=== PATIENT | female | born 1950 | race Caucasian/White ===

== ENCOUNTER 2018-04-15 12:19 | Inpatient (IN) | payer MEDICARE, OTHER ==
[2018-04-15] VITALS (11 sets, daily range): BP systolic 125–156; BP diastolic 62–79
[~2018-04-15] VITALS: Ht 157.5 cm; Wt 51.7 kg
[2018-04-15] MEDS ORDERED: morphine 4 MG/ML inj SYRINge IV ONE (15:10)
[2018-04-15] MEDS ORDERED: famotidine/PF 10 mg/ml inj IV ONE (15:10)
[2018-04-15] MEDS ORDERED: normal saline 1000ML IV soln IVB ONE (15:10)
[2018-04-15] MEDS ORDERED: ondansetron/PF 4mg/2ml inj IV ONE (15:10)
[2018-04-15 15:24] LABS: CLARITY,URINE CLEAR (Clear); COLOR,URINE YELLOW (Yellow); GLUCOSE, URINE NEGATIVE (Neg); KETONES,URINE NEGATIVE (Neg); LEUKOCYTE ESTERASE ,URINE MODERATE (Neg); NITRITES, URINE NEGATIVE (Neg); OCCULT BLOOD,URINE SMALL (Neg); PH,URINE 6.5 (4.8-8.0); PROTEIN,URINE NEGATIVE (Neg); UROBILINOGEN,URINE 0.2 E.U/dL (0.2-1.0)
[2018-04-15 15:25] LABS: UA COLLECTION TYPE NON-SPECIFIED
[2018-04-15 15:30] LABS: SQUAMOUS EPITHELIAL CELL,UR MANY /LPF (FEW)
[2018-04-15 15:32] LABS: TRANSITIONAL EPI CELLS,URINE MODERATE /HPF
[2018-04-15 15:34] LABS: BACTERIA,URINE 2+ /HPF (Neg)
[2018-04-15 15:37] LABS: PROTHROMBIN TIME 10.3 SECONDS (9.0-12.0)
[2018-04-15 15:39] LABS: BASOPHILS # (AUTO) 0.1 X10'3 (0-0.2); BASOPHILS % (AUTO) 0.8 % (0-1); EOSINOPHILS % (AUTO) 0.3 % (0-6); HEMATOCRIT 41.1 % (35.0-45.0); HEMOGLOBIN 14.3 g/dl (12.0-16.0); LYMPHOCYTES # (AUTO) 1.7 X10'3 (1.1-4.8); MEAN CORPUSCULAR HEMOGLOBIN 31.3 PG (27.0-31.0); MEAN CORPUSCULAR HGB CONC 34.8 % (33.0-36.5); MEAN PLATELET VOLUME 7.9 FL (7.4-10.4); MONOCYTES # (AUTO) 0.7 X10'3 (0-0.9); MONOCYTES % (AUTO) 7.6 % (2-12); NEUTROPHILS # (AUTO) 6.8 X10'3 (1.8-7.7); NEUTROPHILS % (AUTO) 73.3 % (42-75); PLATELET COUNT 253 X10'3 (140-440); RED BLOOD COUNT 4.57 X10'6 (4.20-5.60); RED CELL DISTRIBUTION WIDTH 12.1 % (11.5-14.5); WHITE BLOOD COUNT 9.3 X10'3 (4.5-11.0)
[2018-04-15 15:40] LABS: ALANINE AMINOTRANSFERASE 20 U/L (12-78); ALBUMIN 4.2 G/DL (3.4-5.0); ALBUMIN/GLOBULIN RATIO 1.1 (1.1-1.5); ALKALINE PHOSPHATASE 110 IU/L (46-116); ANION GAP 12 (8-16); ASPARTATE AMINO TRANSFERASE 18 U/L (10-37); BILIRUBIN,TOTAL 0.5 MG/DL (0.1-1.0); BLOOD UREA NITROGEN 14 MG/DL (7-18); CALCIUM 9.3 MG/DL (8.5-10.1); CHLORIDE 97 MMOL/L (99-107); GLUCOSE 105 MG/DL (70-104); LIPASE 131 U/L (73-393); POTASSIUM 3.2 MMOL/L (3.5-5.1); SODIUM 137 MMOL/L (135-145); TOTAL CARBON DIOXIDE 27.8 MMOL/L (24-32); TOTAL PROTEIN 7.9 G/DL (6.4-8.2); eGFR 83 ML/MIN
[2018-04-15] MEDS ORDERED: iohexol 300mg/ml 100ml inj. ONE (16:10)
[2018-04-15] MEDS ORDERED: RANI150T44 PO (18:38)
[2018-04-15] MEDS ORDERED: FLUO20CA39 PO (18:38)
[2018-04-15] MEDS ORDERED: GLUC-131 PO (18:38)
[2018-04-15] MEDS ORDERED: OMEG1CAP2 (18:38)
[2018-04-15] MEDS ORDERED: CYAN-19 PO (18:38)
[2018-04-15] MEDS ORDERED: PHEN100C4 PO (18:38)
[2018-04-15] MEDS ORDERED: LECI400C2 (18:38)
[2018-04-15] MEDS ORDERED: DENO60DI (18:38)
[2018-04-15] MEDS ORDERED: VITA100D6 PO (18:38)
[2018-04-15] MEDS ORDERED: FIBER PO (18:38)
[2018-04-15] MEDS ORDERED: LORA10TA61 PO (18:38)
[2018-04-15] MEDS ORDERED: potassium Cl 40MEQ/NS 500ml 500 ML IV PRN ×2 (19:10)
[2018-04-15] MEDS ORDERED: magnesium 4gm in 100ml NS 100 ML IV PRN (19:10)
[2018-04-15] MEDS ORDERED: ondansetron/PF 4mg/2ml inj IV PRN ×2 (19:10→19:40)
[2018-04-15] MEDS ORDERED: magnesium 1gm/100ml D5W IVPB 100 ML IV PRN (19:10)
[2018-04-15] MEDS ORDERED: morphine 2 MG/ML inj. syringe IV PRN (19:10)
[2018-04-15] MEDS ORDERED: magnesium Cl slow-release 64mg tablet PO PRN (19:10)
[2018-04-15] MEDS ORDERED: magnesium hydroxide 30ml (MOM) UD suspension PO PRN (19:10)
[2018-04-15] MEDS ORDERED: potassium Cl 20 mEq SR tablet PO PRN ×2 (19:10)
[2018-04-15] MEDS ORDERED: mag hydrox/Alum hydrox/simeth 30ml oral suspension PO PRN (19:10)
[2018-04-15] MEDS: normal saline 1000ml 1,000 ML IV SCH ×2 (19:36→23:14)
[2018-04-15] MEDS ORDERED: ringers solution, lacted 1,000 ML IV SCH (19:36)
[2018-04-15] MEDS ORDERED: morphine 4 MG/ML inj SYRINge IV PRN ×2 (19:40)
[2018-04-15] MEDS ORDERED: labetalol 20mg/4ml (5mg/ml) syringe IV PRN (19:40)
[2018-04-15] MEDS ORDERED: hydrALAZINE 20mg/ml inj. IV PRN (19:40)
[2018-04-15] MEDS ORDERED: fentaNYL/PF 50MCG/1 ML 2ML syringe IV PRN ×2 (19:40)
[2018-04-15] MEDS ORDERED: BUPIVAcaine/PF 2.5mg/ml (0.25%) 10ml vial ONE (19:59)
[2018-04-15] MEDS ORDERED: famotidine 20mg tablet PO SCH (20:00)
[2018-04-15] MEDS ORDERED: rocuronium 10mg/ml inj IV ONE (20:30)
[2018-04-15] MEDS ORDERED: LIDOcaine 2% (20mg/ml) 5ml vial ONE (20:33)
[2018-04-15] MEDS ORDERED: midazolam 2 mg/2 ml injection ONE (20:33)
[2018-04-15] MEDS ORDERED: meperidine/PF 50mg/ml syringe ONE (20:33)
[2018-04-15] MEDS ORDERED: propofol inj 20 ML IV ONE (20:33)
[2018-04-15] MEDS ORDERED: sevoflurane 250ml liquid IH ONE (20:34)
[2018-04-15] MEDS ORDERED: ondansetron/PF 4mg/2ml inj ONE (20:35)
[2018-04-15] MEDS ORDERED: dexamethasone sod phosphate 4mg/ml inj. ONE (20:35)
[2018-04-15] MEDS ORDERED: ceFAZolin 1000mg inj ONE (20:51)
[2018-04-15] MEDS ORDERED: glycopyrrolate 0.2mg/ml inj ONE (21:18)
[2018-04-15] MEDS ORDERED: neostigmine methylsulfate 1 MG/ML 10ml vial ONE (21:18)
[2018-04-15] MEDS ORDERED: hydrALAZINE 20mg/ml inj. IV ONE (21:24)
[2018-04-15] MEDS: phenytoin sod ER 100mg capsule PO SCH (23:00)
[2018-04-16] VITALS (8 sets, daily range): BP systolic 111–146; BP diastolic 71–86
[2018-04-16] MEDS: morphine 2 MG/ML inj. syringe IV PRN ×2 (01:40→08:33)
[2018-04-16 05:24] LABS: BASOPHILS % (AUTO) 0 % (0-1); EOSINOPHILS % (AUTO) 0 % (0-6); HEMATOCRIT 34.5 % (35.0-45.0); HEMOGLOBIN 11.5 g/dl (12.0-16.0); LYMPHOCYTES # (AUTO) 0.6 X10'3 (1.1-4.8); LYMPHOCYTES % (AUTO) 7.8 % (21-51); MEAN CORPUSCULAR HEMOGLOBIN 30.4 PG (27.0-31.0); MEAN CORPUSCULAR HGB CONC 33.4 % (33.0-36.5); MEAN PLATELET VOLUME 8.1 FL (7.4-10.4); MONOCYTES # (AUTO) 0.5 X10'3 (0-0.9); MONOCYTES % (AUTO) 5.8 % (2-12); NEUTROPHILS # (AUTO) 6.7 X10'3 (1.8-7.7); NEUTROPHILS % (AUTO) 86.4 % (42-75); PLATELET COUNT 202 X10'3 (140-440); RED BLOOD COUNT 3.79 X10'6 (4.20-5.60); RED CELL DISTRIBUTION WIDTH 13.3 % (11.5-14.5); WHITE BLOOD COUNT 7.7 X10'3 (4.5-11.0)
[2018-04-16 06:01] LABS: ALBUMIN 3.1 G/DL (3.4-5.0); ANION GAP 9 (8-16); BLOOD UREA NITROGEN 9 MG/DL (7-18); BUN/CREATININE RATIO 13.4 (6.6-38.0); CALCIUM 7.6 MG/DL (8.5-10.1); CHLORIDE 105 MMOL/L (99-107); CREATININE 0.67 MG/DL (0.40-0.90); GLUCOSE 123 MG/DL (70-104); MAGNESIUM 1.7 MG/DL (1.5-2.4); SODIUM 139 MMOL/L (135-145); TOTAL CARBON DIOXIDE 24.7 MMOL/L (24-32); eGFR 88 ML/MIN
[2018-04-16] MEDS: normal saline 1000ml 1,000 ML IV SCH ×2 (07:55→19:12)
[2018-04-16] MEDS ORDERED: K and/or MAG REPLACEMENT MC SCH (08:00)
[2018-04-16] MEDS ORDERED: non-formulary drug (Gluc/Chon-Msm#2/C/D3/Mang/Born (Glucosamin-Chondroitin-Msm Tab) 1 EACH PO SCH (08:00)
[2018-04-16] MEDS: cyanocobalamin 500mcg tablet PO SCH (08:20)
[2018-04-16] MEDS: FLUoxetine 20mg capsule PO SCH (08:20)
[2018-04-16] MEDS: vitamin E 400 unit capsule PO SCH (08:20)
[2018-04-16] MEDS: levoFLOXACIN-Levaquin 500mg/D5 100 ML IV SCH (09:40)
[2018-04-16] MEDS: phenytoin sod ER 100mg capsule PO SCH (21:28)
[2018-04-16] MEDS: famotidine 20mg tablet PO SCH (21:28)
[2018-04-16] MEDS: lactobacillus rhamnosus 10,000 MMU CELLS/CAPSULE PO SCH (21:29)
[2018-04-16] MEDS: HYDROcodone/acetaminophen 10/325mg tab PO PRN (21:29)
[2018-04-17] VITALS: BP 136/78
[2018-04-17 05:31] LABS: BASOPHILS % (AUTO) 0.5 % (0-1); EOSINOPHILS # (AUTO) 0.1 X10'3 (0-0.9); EOSINOPHILS % (AUTO) 1.2 % (0-6); HEMATOCRIT 31.3 % (35.0-45.0); HEMOGLOBIN 10.7 g/dl (12.0-16.0); LYMPHOCYTES # (AUTO) 1.1 X10'3 (1.1-4.8); LYMPHOCYTES % (AUTO) 16.7 % (21-51); MEAN CORPUSCULAR HEMOGLOBIN 31.1 PG (27.0-31.0); MEAN CORPUSCULAR HGB CONC 34.1 % (33.0-36.5); MEAN CORPUSCULAR VOLUME 91.2 FL (78-98); MEAN PLATELET VOLUME 7.9 FL (7.4-10.4); MONOCYTES # (AUTO) 0.6 X10'3 (0-0.9); MONOCYTES % (AUTO) 8.5 % (2-12); NEUTROPHILS # (AUTO) 4.8 X10'3 (1.8-7.7); NEUTROPHILS % (AUTO) 73.1 % (42-75); PLATELET COUNT 167 X10'3 (140-440); RED BLOOD COUNT 3.43 X10'6 (4.20-5.60); RED CELL DISTRIBUTION WIDTH 13.1 % (11.5-14.5); WHITE BLOOD COUNT 6.6 X10'3 (4.5-11.0)
[2018-04-17 05:51] LABS: ALBUMIN 2.8 G/DL (3.4-5.0); ANION GAP 11 (8-16); BLOOD UREA NITROGEN 5 MG/DL (7-18); BUN/CREATININE RATIO 7.8 (6.6-38.0); CALCIUM 7.6 MG/DL (8.5-10.1); CHLORIDE 105 MMOL/L (99-107); CREATININE 0.64 MG/DL (0.40-0.90); GLUCOSE 109 MG/DL (70-104); MAGNESIUM 1.7 MG/DL (1.5-2.4); POTASSIUM 3.6 MMOL/L (3.5-5.1); SODIUM 142 MMOL/L (135-145); TOTAL CARBON DIOXIDE 26.5 MMOL/L (24-32); eGFR > 90 ML/MIN
[2018-04-17 07:07] VITALS: BP 131/81
[2018-04-17] MEDS: FLUoxetine 20mg capsule PO SCH (08:00)
[2018-04-17] MEDS: cyanocobalamin 500mcg tablet PO SCH (08:01)
[2018-04-17] MEDS: levoFLOXACIN-Levaquin 500mg/D5 100 ML IV SCH (08:01)
[2018-04-17] MEDS: vitamin E 400 unit capsule PO SCH (08:01)
[2018-04-17] MEDS: HYDROcodone/acetaminophen 10/325mg tab PO PRN ×2 (08:01→14:28)
[2018-04-17] MEDS: famotidine 20mg tablet PO SCH (08:01)
[2018-04-17] MEDS: lactobacillus rhamnosus 10,000 MMU CELLS/CAPSULE PO SCH (08:01)
[2018-04-17 12:29] VITALS: BP 124/73
[2018-04-17] MEDS ORDERED: TRAM50TA2 PO ×2 (13:05→13:06)
[2018-04-17] MEDS ORDERED: LEVO500T2 PO (13:16)
== END 2018-04-17 16:33 | disposition home or self-care (01) | DRG 418 ==
LOC: ER 12:21 → PACU 19:10 → SUR 3N 22:40
PROVIDERS: ADMIT Hospitalist; ATTEND Internal Medicine
PROC: BW211ZZ Computerized Tomography (CT Scan) of Abdomen and Pelvis using Low Osmolar Contrast (ICD-10-PCS; 2018-04-15)
PROC: 0FT44ZZ Resection of Gallbladder, Percutaneous Endoscopic Approach (ICD-10-PCS; principal; 2018-04-15 20:34)
DX: K80.01 Calculus of gallbladder with acute cholecystitis with obstruction (principal); D62 Acute posthemorrhagic anemia; M81.0 Age-related osteoporosis without current pathological fracture; F32.9 Major depressive disorder, single episode, unspecified; G40.909 Epilepsy, unspecified, not intractable, without status epilepticus; K82.8 Other specified diseases of gallbladder; Z87.11 Personal history of peptic ulcer disease; Z88.5 Allergy status to narcotic agent; Z88.0 Allergy status to penicillin; Z88.8 Allergy status to other drugs, medicaments and biological substances; Z79.899 Other long term (current) drug therapy
CPT/HCPCS: 36415; 71045; 74177; 76700; 80048; 80053; 80185; 81001; 83690; 83735; 85025; 85610; 87070; 88304; 96361; 96374; 96375; 99285; A7000; G0378; J0360; J0690; J1100; J1956; J2001; J2175; J2250; J2270; J2405; J2704; J2710; J3420; J3490; J7030; J7120; Q9967

== ENCOUNTER 2019-12-27 09:58 | Outpatient (CLI) | payer MEDICARE, OTHER ==
[~2019-12-27 09:58] MED LIST: CYAN-51 PO; FIBER PO; FLUO20CA39 PO; GLUC-131 PO; PHEN100C4 PO; RANI-648 PO; TRAM50TA2 PO; VITA100D6 PO
== END 2019-12-27 23:59 | disposition home or self-care (01) ==
LOC: RAD 09:58
PROVIDERS: ATTEND Psychiatry & Neurology Neurology
DX: R56.9 Unspecified convulsions (principal)
CPT/HCPCS: 95816

== ENCOUNTER 2024-07-28 10:07 | Emergency (ER) | payer MEDICARE, OTHER ==
[~2024-07-28] VITALS: Ht 160 cm; Wt 52.3 kg
[~2024-07-28 10:07] MED LIST changes: +CYAN-104 PO; -CYAN-51 PO
[2024-07-28 11:58] LABS: HEMOGLOBIN 12.6 g/dl (12.0-16.0); LYMPHOCYTES # (AUTO) 0.5 X10'3 (1.1-4.8); MEAN CORPUSCULAR HEMOGLOBIN 30.4 PG (27.0-31.0); MONOCYTES # (AUTO) 0.4 X10'3 (0-0.9); RED BLOOD COUNT 4.14 X10'6 (4.20-5.60); RED CELL DISTRIBUTION WIDTH 14.1 % (11.5-14.5)
[2024-07-28 12:00] LABS: BASOPHILS % (AUTO) 0.6 % (0-1); EOSINOPHILS % (AUTO) 0 % (0-6); HEMATOCRIT 38.6 % (35.0-45.0); LYMPHOCYTES % (AUTO) 7.1 % (21-51); MEAN CORPUSCULAR HGB CONC 32.7 g/dL (33.0-36.5); MEAN CORPUSCULAR VOLUME 93.2 FL (78-98); MEAN PLATELET VOLUME 9.1 FL (7.4-10.4); MONOCYTES % (AUTO) 4.9 % (2-12); NEUTROPHILS # (AUTO) 6.7 X10'3 (1.8-7.7); NEUTROPHILS % (AUTO) 87.4 % (42-75); PLATELET COUNT 205 X10'3 (140-440); WHITE BLOOD COUNT 7.7 X10'3 (4.5-11.0)
[2024-07-28 12:31] LABS: ALANINE AMINOTRANSFERASE 49 U/L (12-78); ALBUMIN 3.6 G/DL (3.4-5.0); ALKALINE PHOSPHATASE 56 IU/L (46-116); ANION GAP 16 (8-16); ASPARTATE AMINO TRANSFERASE 114 U/L (10-37); BILIRUBIN,TOTAL 0.4 MG/DL (0.1-1.0); BLOOD UREA NITROGEN 25 MG/DL (7-18); BUN/CREATININE RATIO 20.8 (10.0-20.0); CALCIUM 9.1 MG/DL (8.5-10.1); CHLORIDE 103 MMOL/L (99-107); GLUCOSE 260 MG/DL (70-104); POTASSIUM 3.6 MMOL/L (3.5-5.1); SODIUM 141 MMOL/L (135-145); TOTAL CARBON DIOXIDE 21.7 MMOL/L (24-32); TOTAL PROTEIN 7.3 G/DL (6.4-8.2); eCRCL 34 ML/MIN; eGFR 44 ML/MIN
[2024-07-28 12:33] LABS: LIPASE 53 U/L (16-77)
[2024-07-28] MEDS ORDERED: iohexol 350MG/ML 100ml bottle IV ONE (12:56)
[2024-07-28] MEDS: normal saline 1000ml 1,000 ML IV ONE (14:33)
[2024-07-28 15:01] LABS: APTT 28 SECONDS (22-32); INR 1.1 INR; PROTHROMBIN TIME 11.2 SECONDS (9.0-12.0)
[2024-07-28 15:17] VITALS: TEMP 97.8
[2024-07-28 15:50] LABS: BASOPHILS % (AUTO) 0.1 % (0-1); EOSINOPHILS % (AUTO) 0 % (0-6); HEMATOCRIT 30.3 % (35.0-45.0); HEMOGLOBIN 10.2 g/dl (12.0-16.0); LYMPHOCYTES # (AUTO) 0.3 X10'3 (1.1-4.8); LYMPHOCYTES % (AUTO) 6.4 % (21-51); MEAN CORPUSCULAR HEMOGLOBIN 30.8 PG (27.0-31.0); MEAN CORPUSCULAR HGB CONC 33.7 g/dL (33.0-36.5); MEAN CORPUSCULAR VOLUME 91.4 FL (78-98); MEAN PLATELET VOLUME 8.9 FL (7.4-10.4); MONOCYTES # (AUTO) 0.2 X10'3 (0-0.9); MONOCYTES % (AUTO) 5.5 % (2-12); NEUTROPHILS # (AUTO) 3.5 X10'3 (1.8-7.7); PLATELET COUNT 141 X10'3 (140-440); RED BLOOD COUNT 3.31 X10'6 (4.20-5.60); RED CELL DISTRIBUTION WIDTH 13.4 % (11.5-14.5)
[2024-07-28 18:55] VITALS: BP 135/89; PULSE 76; RESP 15; O2SAT 95
== END 2024-07-28 17:48 | disposition hospice, inpatient (51) ==
LOC: ER 10:08
DX: K68.3 Retroperitoneal hematoma (principal); Z88.0 Allergy status to penicillin; Z88.1 Allergy status to other antibiotic agents; Z88.5 Allergy status to narcotic agent; Z79.899 Other long term (current) drug therapy
CPT/HCPCS: 36415; 71275; 74174; 80053; 83690; 84484; 85025; 85610; 85730; 86885; 86900; 86901; 93005; 96360; 96361; 99291; A4615; C1758; J7030; Q9967